=== PATIENT | female | born 1955 | race Caucasian/White ===

== ENCOUNTER 2018-01-21 16:32 | Emergency (ER) | payer BC ==
[~2018-01-21] VITALS: Ht 162.6 cm; Wt 79.6 kg
[2018-01-21] MEDS ORDERED: IV NORMAL SALINE 1,000ML 1,000 ML IV SCH (16:46)
--- NOTE | 2018-01-21 17:05 | PHYS DOC ---
Past History Past Medical History: Diabetes, High Cholesterol, Hypertension Additional Past Surgical Histo: knee replacement Smoking: Quit Greater Than 1 Year Adult General Chief Complaint Chief Complaint: FOOT INJURY PAIN HPI HPI Patient is a 62-year-old female who presents to the emergency department for evaluation. She states that she has had some redness on her left great toe for a while, but it became somewhat black over the past 2-3 days. She went to a exit booth agent today, for the first time, who sent her to the emergency department. The patient states the exit booth agent did an x-ray, which did show some gas in the soft tissues of her foot. The patient states that the exit booth agent told her that her foot was gangrenous P there is a malodorous discharge from her foot, especially in the interdigital regions. She states she is had some chills on and off for the past few weeks, but has not had any definite fevers. She does not have any significant pain in the area. There are no alleviating, or exacerbating factors to her symptoms. Review of Systems Review of Systems Constitutional: Denies fever. Reports occasional chills [] Eyes: Denies change in visual acuity, redness, or eye pain [] HENT: Denies nasal congestion or sore throat [] Respiratory: Denies cough or shortness of breath [] Cardiovascular: The patient denies any shortness of breath, chest pain, palpitations, or orthopnea [] GI: Denies abdominal pain, nausea, vomiting, bloody stools or diarrhea [] : Denies dysuria or hematuria [] Musculoskeletal: Denies back pain or joint pain [] Integument: Denies rash or skin lesions [] Neurologic: Denies headache, focal weakness or sensory changes. Does report chronic decreased sensation in her lower extremities bilaterally. [] Endocrine: Denies polyuria or polydipsia [] All other systems were reviewed and found to be within normal limits, except as documented in this note. Physical Exam Physical Exam PHYSICAL EXAM: CONSTITUTIONAL: Well developed, well nourished HEAD: normocephalic, atraumatic EENT: PERRL, EOMI. Conjunctivae normal color, sclerae non-icteric; moist mucous membranes. NECK: Supple, non-tender; no meningismus. LUNGS: Lungs CTA, breathing even and unlabored. Normal air movement. HEART: Regular rate and rhythm, no murmur CHEST: No deformity; non-tender ABDOMEN: The abdomen is soft, and non-tender, no masses or bruits. EXTREM: There are palpable popliteal pulses bilaterally. There are no definite dorsalis pedis or posterior tibial pulses palpable, but the feet bilaterally appear well perfused, and are warm to the touch. On the dorsal aspect of the left great toe, extending towards the distal foot, as well as the interdigital space, there is necrotic tissue, with malodorous discharge present. There is also some sloughing of the skin on the dorsal lateral aspect of the foot. All extremities exhibit Normal ROM; no deformity, no calf tenderness. There is no pedal edema. SKIN: No rash; no diaphoresis NEURO: Alert; normal speech and cognition; CN's grossly intact; strength grossly intact without focal deficit. BACK: No CVA TTP. EKG EKG [Normal sinus rhythm at a rate of 103 bpm, normal axis, normal intervals, there are no acute ischemic ST/T changes.] Radiology/Procedures Radiology/Procedures [ER physician preliminary for x-ray interpretation: Soft tissue gas is noted in the right toe. There is no definite bony erosion noted. There are postoperative changes in the screw at the distal first metatarsal. Official radiology report is currently pending.] Course & Med Decision Making Course & Med Decision Making Pertinent Labs and Imaging studies reviewed. (See chart for details) [6:00 PM: The patient does warrant transfer to a facility with surgery/podiatry , and possible vascular evaluation, although I am not highly suspicious this represents acute limits ischemia (there is no vascular Doppler to assess pulses , on clinical assessment foot does not appear acutely ischemic). I did speak with Dr. Wolfe, [facility], the patient's facility of choice, who accepted the patient. They will determine which facility is appropriate for the patient and give us a room assignment. The patient will be transferred via EMS.] Dragon Disclaimer Dragon Disclaimer This electronic medical record was generated, in whole or in part, using a voice recognition dictation system. Departure Departure: Impression: Primary Impression: Gangrene of toe of left foot Additional Impressions: Sepsis Diabetes Disposition: 02 XFER SHT-TRM HOSP ([facility]) Condition: STABLE Referrals: [facility] [place] (PCP) Problem Qualifiers SAMANTHA PARKER MD Jan 21, 2018 17:05
--- NOTE | 2018-01-21 17:08 | EKG ---
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
[2018-01-21] MEDS ORDERED: IV NORMAL SALINE 1,000ML 1,000 ML IV ONE (17:30)
[2018-01-21] MEDS ORDERED: PIPERACILLIN/TAZOBACTAM 3.375 GM VIAL IV ONE (17:41)
[2018-01-21] MEDS ORDERED: IV NORMAL SALINE 50ML 50 ML ONE (17:41)
[2018-01-21] MEDS ORDERED: VANCOMYCIN 1 GM VIAL. ONE (17:41)
[2018-01-21] MEDS ORDERED: IV NORMAL SALINE 250ML 250 ML ONE (17:41)
[2018-01-21 17:43] LABS: BASO # 0.1 x10^3/uL (0.0-0.2); BASO % 1 % (0-3); EOS # 0.2 x10^3/uL (0.0-0.7); EOS % 1 % (0-3); HEMATOCRIT 34.4 % (36.0-47.0); HEMOGLOBIN 11.6 g/dL (12.0-15.5); LYMPH # 2.9 x10^3/uL (1.0-4.8); LYMPH % 18 % (24-48); MEAN CORPUSCULAR HEMOGLOBIN 29 pg (25-35); MEAN CORPUSCULAR HGB CONC 34 g/dL (31-37); MEAN CORPUSCULAR VOLUME 85 fL (79-100); MONO # 1.1 x10^3/uL (0.0-1.1); MONO % 7 % (0-9); NEUT # 12.4 x10^3uL (1.8-7.7); NEUT % 74 % (31-73); PLATELET COUNT 372 x10^3/uL (140-400); RED BLOOD COUNT 4.05 x10^6/uL (3.50-5.40); RED CELL DISTRIBUTION WIDTH 13.5 % (11.5-14.5); WHITE BLOOD COUNT 16.7 x10^3/uL (4.0-11.0)
[2018-01-21 17:56] LABS: ALBUMIN/GLOBULIN RATIO 0.5 (1.0-1.7); CALCIUM 9.9 mg/dL (8.5-10.1); CREATININE 1.1 mg/dL (0.6-1.0); TOTAL BILIRUBIN 0.5 mg/dL (0.2-1.0); TOTAL PROTEIN 8.6 g/dL (6.4-8.2)
[2018-01-21 17:58] VITALS: BP 135/65
[2018-01-21] MEDS ORDERED: PIPERACILLIN/TAZOBACTAM 3.375 GM in IV NORMAL SALINE 50ML 50 ML IV ONE (18:00)
[2018-01-21] MEDS ORDERED: VANCOMYCIN 1 GM in IV NORMAL SALINE 250ML 250 ML IV ONE (18:00)
[2018-01-21 20:09] LABS: % BANDS 7 % (0-9); % LYMPHS 11 % (24-48); % MONOS 5 % (0-10); % SEGS 73 % (35-66)
[2018-01-21 20:20] LABS: PLT ESTIMATE ADEQUATE (ADEQUATE)
[2018-01-21 20:21] LABS: POLYCHROMASIA PRESENT
[2018-01-21 20:22] LABS: STOMATOCYTES FEW
[2018-01-21 20:39] LABS: % ATYL 4 % (0-0)
--- NOTE | 2018-01-21 22:06 | RAD ---
FOOT LEFT 3V History: Necrotic left great toe with redness, turned black a few days ago, diabetes, oozing Comparison: March 28, 2013. Findings: 3 views of the left foot are submitted. There is a single screw of the distal first metatarsal. There are some erosions are postsurgical change of the distal medial aspect of the left first metatarsal, similar in appearance compared the previous exam. No acute fracture is identified. There is some gas in the more medial plantar soft tissues at the level of the first interphalangeal joint without adjacent aggressive bone destruction. There is an associated small focus of radiopaque debris near the skin surface. There is some degenerative change most notable of the first metatarsal phalangeal joint. Impression: 1. There is some soft tissue gas at the medial plantar aspect of about the first interphalangeal joint and also a small focus of radiopaque debris closer to the skin surface. No aggressive bone destruction or acute fracture is identified. 2. There is again single screw of the distal first metatarsal. Electronically signed by: Crow Diego MD (01/21/2018 10:03 PM) [facility]
== END 2018-01-21 19:55 | disposition short-term general hospital (02) ==
LOC: ER 16:32
DX: E11.52 Type 2 diabetes mellitus with diabetic peripheral angiopathy with gangrene (principal); A48.0 Gas gangrene; A41.9 Sepsis, unspecified organism; E78.00 Pure hypercholesterolemia, unspecified; I10 Essential (primary) hypertension; Z87.891 Personal history of nicotine dependence
CPT/HCPCS: 36415; 73630; 80053; 82947; 83605; 85007; 85025; 87040; 87070; 93005; 96365; 96368; 99285; J2543; J3370; J7050; J7030

== ENCOUNTER 2020-04-10 13:44 | Emergency (ER) | payer BC, MEDICARE ==
[~2020-04-10] VITALS: Ht 167.6 cm; Wt 85.5 kg
[2020-04-10] MEDS ORDERED: ONDANSETRON PF 4 MG/2 ML VIAL. ONE (13:47)
[2020-04-10] MEDS ORDERED: IOHEXOL 350 MG/ML 100 ML VIAL. IV ONE (14:00)
--- NOTE | 2020-04-10 14:03 | RAD ---
EXAM: CT head without contrast INDICATION: Neuro deficits COMPARISON: None TECHNIQUE: Axial CT imaging through the head without intravenous contrast. One or more of the following individualized dose reduction techniques were utilized for this examination: 1. Automated exposure control 2. Adjustment of the mA and/or kV according to patient size 3. Use of iterative reconstruction technique. FINDINGS: The ventricles and sulci are moderately enlarged, reflecting age-related volume loss. There is a mild burden of periventricular and deep hypoattenuating white matter lesions, likely related to chronic microvascular ischemia. Calderón-white matter differentiation is maintained. There is no intracranial hemorrhage, acute infarct, or mass lesion. Basal cisterns are clear. The skull and scalp are intact. Paranasal sinuses and mastoid air cells are clear. Globes and orbits are intact.. IMPRESSION: 1. No acute intracranial abnormality. 2. Moderate volume loss and mild white matter disease. FOR INTERNAL CODING PURPOSES Critical result: Findings discussed with JACOBO JOHNSON at 04/10/2020 1:50 PM. RESULT CODE: (C) Electronically signed by: Alexa Archer MD (04/10/2020 2:00 PM) [id number]
[2020-04-10] MEDS ORDERED: LABETALOL 20 MG/4 ML DISP.SYRIN. IV PRN (14:30)
[2020-04-10] MEDS ORDERED: ALTEPLASE 0 MG IV ONE (14:30)
[2020-04-10] MEDS ORDERED: ALTEPLASE IV SCH (14:30)
[2020-04-10] MEDS ORDERED: ALTEPLASE 0 MG IV SCH (14:30)
[2020-04-10] MEDS ORDERED: ALTEPLASE 7.7 MG IV ONE (14:30)
[2020-04-10] MEDS ORDERED: IV NORMAL SALINE 50ML 50 ML IV ONE (14:30)
[2020-04-10] MEDS ORDERED: ALTEPLASE 100 MG IV ONE (14:33)
[2020-04-10 14:36] LABS: HEMATOCRIT 34.5 % (36.0-47.0); HEMOGLOBIN 11.2 g/dL (12.0-15.5); RED BLOOD COUNT 3.99 x10^6/uL (3.50-5.40); RED CELL DISTRIBUTION WIDTH 14.2 % (11.5-14.5); WHITE BLOOD COUNT 10.7 x10^3/uL (4.0-11.0)
--- NOTE | 2020-04-10 14:37 | PHYS DOC ---
Past History Past Medical History: Diabetes, High Cholesterol, Hypertension Past Surgical History: Cholecystectomy, , Hysterectomy, Oophorectomy, Other Additional Past Surgical Histo: knee replacement Smoking: Quit Greater Than 1 Year Alcohol Use: None Drug Use: None General Adult EDM: Chief Complaint: NEURO SYMPTOMS/DEFICITS HPI: HPI: 64-year-old female presents via EMS as a code stroke. She was last known well at 1245. She was directly observed by her to have a sudden onset of slurred speech and inability to stand. The patient did not notice the weakness until she tried to stand up. When she tried to talk she does notice that she has slurred speech. She also has a left facial droop. Patient was feeling well prior to this. She denies fever or chills. Review of Systems: Review of Systems: Constitutional: Denies fever or chills Eyes: Denies change in visual acuity HENT: Denies nasal congestion or sore throat Respiratory: Denies cough or shortness of breath Cardiovascular: Denies chest pain or edema GI: Denies abdominal pain, nausea, vomiting, bloody stools or diarrhea : Denies dysuria Musculoskeletal: Denies back pain or joint pain Integument: Denies rash Neurologic: Left-sided facial droop, slurred speech, lower extremity weakness bilaterally Endocrine: Denies polyuria or polydipsia Lymphatic: Denies swollen glands Psychiatric: Denies depression or anxiety Current Medications: Current Meds: Current Medications Medications (Trade) Dose Ordered Sig/Reva Start Time Stop Time Status Last Admin Dose Admin Alteplase, Recombinant 0 ml @ 0 mls/hr Q1H 04/10/20 14:30 04/10/20 14:31 UNV Iohexol (Omnipaque 350 Mg/ml) 100 ml 1X ONCE 04/10/20 14:00 04/10/20 14:01 DC 04/10/20 14:10 100 ML Labetalol HCl (Normodyne) 10 mg PRN Q10MIN PRN 04/10/20 14:30 UNV Nicardipine HCl 50 mg/Sodium Chloride 250 ml @ 25 mls/hr CONT PRN PRN 04/10/20 14:30 UNV Ondansetron HCl (Zofran) 4 mg STK-MED ONCE 04/10/20 13:47 04/10/20 13:48 DC Sodium Chloride 50 ml @ 0 mls/hr 1X ONCE 04/10/20 14:30 04/10/20 14:31 UNV Allergies: Allergies: Allergies Coded Allergies Type Severity Reaction Last Updated Verified No Known Drug Allergies 01/21/18 No Physical Exam: PE: Constitutional: Well developed, well nourished, no acute distress, non-toxic appearance. [] HENT: Normocephalic, atraumatic, bilateral external ears normal, oropharynx moist, no oral exudates, nose normal. [] Eyes: PERRLA, EOMI, conjunctiva normal, no discharge. [] Neck: Normal range of motion, no tenderness, supple, no stridor. [] Cardiovascular: Heart rate regular rhythm, no murmur [] Lungs & Thorax: Bilateral breath sounds clear to auscultation [] Abdomen: Bowel sounds normal, soft, no tenderness, no masses, no pulsatile masses. [] Skin: Warm, dry, no erythema, no rash. [] Back: No tenderness, no CVA tenderness. [] Extremities: No tenderness, no cyanosis, no clubbing, ROM intact, no edema. [] Neurologic: See NIHSS [] Psychologic: Affect normal, judgement normal, mood normal. [] Current Patient Data: Labs: Laboratory Tests Test 04/10/20 14:06 Glucose (Fingerstick) 185 mg/dL (70-99) H EKG: EKG: [] Radiology/Procedures: Radiology/Procedures: [] Impressions: EXAM: CT head without contrast INDICATION: Neuro deficits COMPARISON: None TECHNIQUE: Axial CT imaging through the head without intravenous contrast. One or more of the following individualized dose reduction techniques were utilized for this examination: 1. Automated exposure control 2. Adjustment of the mA and/or kV according to patient size 3. Use of iterative reconstruction technique. FINDINGS: The ventricles and sulci are moderately enlarged, reflecting age-related volume loss. There is a mild burden of periventricular and deep hypoattenuating white matter lesions, likely related to chronic microvascular ischemia. Calderón-white matter differentiation is maintained. There is no intracranial hemorrhage, acute infarct, or mass lesion. Basal cisterns are clear. The skull and scalp are intact. Paranasal sinuses and mastoid air cells are clear. Globes and orbits are intact.. IMPRESSION: 1. No acute intracranial abnormality. 2. Moderate volume loss and mild white matter disease. FOR INTERNAL CODING PURPOSES Critical result: Findings discussed with JACOBO JOHNSON at 04/10/2020 1:50 PM. RESULT CODE: (C) Electronically signed by: Alexa Archer MD (04/10/2020 2:00 PM) [id number] DICTATED AND SIGNED BY: ALEXA ARCHER MD DATE: 04/10/20 1400 CC: JACOBO JOHNSON DO; [facility] [place] ~ STUDY: CT angiography of the head and neck INDICATION: Slurred study COMPARISON: CT head same day TECHNIQUE: Axial CT imaging of the head and neck utilizing angiography protocol and performed after the intravenous administration of intravenous contrast. Multiplanar reformats and 3D MIP acquisitions were obtained. Encountered areas of stenosis are measured per NASCET criteria. One or more of the following individualized dose reduction techniques were utilized for this examination: 1. Automated exposure control 2. Adjustment of the mA and/or kV according to patient size 3. Use of iterative reconstruction technique. FINDINGS: CTA NECK: Arch/Proximal Great Vessels: Normal configuration. Mild calcified atherosclerosis at great vessel origins without narrowing. Carotid Bifurcation/Cervical ICA: Common carotid arteries are patent. There is mild atheromatous plaque and calcifications at the right carotid bifurcation and minimal calcifications of the left carotid bifurcation. Approximately 15 percent narrowing of the right internal carotid artery origin. No narrowing of the left internal carotid artery origin. Vertebral Arteries: There are calcifications at the right vertebral artery origin, however the vertebral artery is patent. The left vertebral artery is normal. CTA HEAD: Posterior Circulation: There are calcifications in the intradural left vertebral artery with mild to moderate narrowing. The right intradural vertebral artery is patent. Basilar artery, superior cerebellar arteries, and posterior cerebral arteries are normal. Anterior Circulation: Mild calcifications in the intracranial internal carotid arteries with mild narrowing, greater on the right. The middle cerebral, anterior cerebral, and anterior communicating arteries are normal. Veins: Dural venous sinuses and jugular veins are patent. MISCELLANEOUS: Mildly enlarged, multinodular thyroid gland. Lung apices are clear. IMPRESSION: No large vessel occlusion in the head or neck. Critical results discussed by Dr. Archer with Dr. Johnson at 2:30 PM on 04/10/2020 FOR INTERNAL CODING PURPOSES Critical result: Findings discussed with JACOBO JOHNSON at 04/10/2020 2:38 PM. RESULT CODE: (C) Electronically signed by: Alexa Archer MD (04/10/2020 2:39 PM) [id number] DICTATED AND SIGNED BY: ALEXA ARCHER MD DATE: 04/10/20 1439 CC: JACOBO JOHNSON DO; [facility] [place] ~ Heart Score: Risk Factors: Risk Factors: DM, Current or recent (<one month) smoker, HTN, HLP, family history of CAD, obesity. Risk Scores: Score 0 - 3: 2.5% MACE over next 6 weeks - Discharge Home Score 4 - 6: 20.3% MACE over next 6 weeks - Admit for Clinical Observation Score 7 - 10: 72.7% MACE over next 6 weeks - Early Invasive Strategies Course & Med Decision Making: Course & Med Decision Making Pertinent Labs and Imaging studies reviewed. (See chart for details) The patient's head CT is negative for hemorrhagic stroke. Her CTA is reported to be negative. I spoke with the patient about TPA. She has slurred speech and this is an optional indication for TPA. The patient denies recent surgery. She denies history of hemorrhagic stroke or aneurysms. She understands that TPA may help her symptoms, and may not change her symptoms at all, where she could have worsening of symptoms. She would like to proceed. The patient would like to be transferred to the [facility] system. We will attempt to do this. Her labs are unremarkable. [facility] was unable to accept the transfer due to a long wait to go to the correct facility. The patient has agreed to transfer to [facility]. The patient seems to worsen the bed as she now has noticeable weakness in her right arm and right leg. Her NIH stroke scale score is now 5. I repeated her head CT without contrast and it was still negative. I spoke with Dr. Anton at [facility] and he has accepted the patient for transfer and admission. She will go by ambulance. 52 minutes of critical care time was spent on this patient exclusive of other billable procedures. [] Dragon Disclaimer: Dragon Disclaimer: This electronic medical record was generated, in whole or in part, using a voice recognition dictation system. NIH Stroke Scale: NIH Stroke Scale Response (Comments) Value Level of Consciousness: 0 Alert/Responsive 0 LOC Questions: 0 Answers both correctly 0 LOC Commands: 0 Performs both tasks 0 Best Gaze: 0 Normal 0 Visual: 0 No visual loss 0 Facial Palsy: 1 Minor paralysis 1 Motor - Left Arm 0 No drift 0 Motor - Right Arm 0 No drift 0 Motor - Left Leg 0 No drift 0 Motor: Right Leg 0 No drift 0 Limb Ataxia: 0 Absent 0 Sensory: 0 No loss 0 Best Language: 0 Normal 0 Dysathria: 1 Mild to moderate 1 Extinction and Inattention: 0 Normal 0 Total 2 Departure Departure: Impression: Primary Impression: Stroke Qualified Codes: I63.50 - Cerebral infarction due to unspecified occlusion or stenosis of unspecified cerebral artery Disposition: 02 DC/TRF OTHER SHORT TERM HOS Condition: STABLE Referrals: [facility] [place] (PCP) JACOBO JOHNSON DO Apr 10, 2020 14:37
[2020-04-10 14:41] LABS: CALCIUM 9.6 mg/dL (8.5-10.1); CREATININE 1.2 mg/dL (0.6-1.0); GFR 44.9; POTASSIUM 4.2 mmol/L (3.5-5.1)
--- NOTE | 2020-04-10 14:42 | RAD ---
STUDY: CT angiography of the head and neck INDICATION: Slurred study COMPARISON: CT head same day TECHNIQUE: Axial CT imaging of the head and neck utilizing angiography protocol and performed after the intravenous administration of intravenous contrast. Multiplanar reformats and 3D MIP acquisitions were obtained. Encountered areas of stenosis are measured per NASCET criteria. One or more of the following individualized dose reduction techniques were utilized for this examination: 1. Automated exposure control 2. Adjustment of the mA and/or kV according to patient size 3. Use of iterative reconstruction technique. FINDINGS: CTA NECK: Arch/Proximal Great Vessels: Normal configuration. Mild calcified atherosclerosis at great vessel origins without narrowing. Carotid Bifurcation/Cervical ICA: Common carotid arteries are patent. There is mild atheromatous plaque and calcifications at the right carotid bifurcation and minimal calcifications of the left carotid bifurcation. Approximately 15 percent narrowing of the right internal carotid artery origin. No narrowing of the left internal carotid artery origin. Vertebral Arteries: There are calcifications at the right vertebral artery origin, however the vertebral artery is patent. The left vertebral artery is normal. CTA HEAD: Posterior Circulation: There are calcifications in the intradural left vertebral artery with mild to moderate narrowing. The right intradural vertebral artery is patent. Basilar artery, superior cerebellar arteries, and posterior cerebral arteries are normal. Anterior Circulation: Mild calcifications in the intracranial internal carotid arteries with mild narrowing, greater on the right. The middle cerebral, anterior cerebral, and anterior communicating arteries are normal. Veins: Dural venous sinuses and jugular veins are patent. MISCELLANEOUS: Mildly enlarged, multinodular thyroid gland. Lung apices are clear. IMPRESSION: No large vessel occlusion in the head or neck. Critical results discussed by Dr. Archer with Dr. Johnson at 2:30 PM on 04/10/2020 FOR INTERNAL CODING PURPOSES Critical result: Findings discussed with JACOBO JOHNSON at 04/10/2020 2:38 PM. RESULT CODE: (C) Electronically signed by: Alexa Archer MD (04/10/2020 2:39 PM) [id number]
[2020-04-10 14:47] LABS: ALBUMIN/GLOBULIN RATIO 0.8 (1.0-1.7); TOTAL BILIRUBIN 0.1 mg/dL (0.2-1.0); TOTAL PROTEIN 6.8 g/dL (6.4-8.2)
--- NOTE | 2020-04-10 14:59 | EKG ---
[address] [address] Test Date: 2020-04-10 Test Time: 14:00:28 Pat Name: JUSTIN GONZALEZ Department: Room: Gender: F Entry Level: DOLLY : 1955 Requested By: JACOBO JOHNSON Order Number: [id number] Reading MD: Measurements Intervals [place] Rate: 90 P: 56 PA: 162 QRS: 53 QRSD: 82 T: 71 QT: 350 QTc: 432 Interpretive Statements SINUS RHYTHM NORMAL ECG RI6.02 No previous ECG available for comparison
--- NOTE | 2020-04-10 17:19 | RAD ---
EXAM: CT head without contrast INDICATION: Stroke, acute change COMPARISON: CT head 04/10/2020 at 1:36 PM TECHNIQUE: Axial CT imaging through the head without intravenous contrast. One or more of the following individualized dose reduction techniques were utilized for this examination: 1. Automated exposure control 2. Adjustment of the mA and/or kV according to patient size 3. Use of iterative reconstruction technique. FINDINGS: The ventricles and sulci are moderately enlarged, reflecting age-related volume loss. There is a mild burden of periventricular and deep hypoattenuating white matter lesions. Calderón-white matter differentiation is maintained. There is no intracranial hemorrhage, acute infarct, or mass lesion. Basal cisterns are clear. The skull and scalp are intact. Paranasal sinuses and mastoid air cells are clear. Globes and orbits are intact.. IMPRESSION: No acute intracranial abnormality. FOR INTERNAL CODING PURPOSES Critical result: Findings discussed with JACOBO JOHNSON at 04/10/2020 5:16 PM. RESULT CODE: (C) Electronically signed by: Alexa Archer MD (04/10/2020 5:16 PM) [id number]
[2020-04-10 17:21] VITALS: BP 142/60
[2020-04-10 18:29] LABS: BILIRUBIN,URINE NEG (NEG); CLARITY,URINE CLOUDY; COLOR,URINE YELLOW; GLUCOSE,URINE 100 mg/dL (NEG)
[2020-04-10 18:30] LABS: BACTERIA,URINE MOD /HPF (0-FEW); NITRITE,URINE NEG (NEG); RBC,URINE >40 /HPF (0-2); UROBILINOGEN,URINE 0.2 mg/dL (0.2 mg/dL)
== END 2020-04-10 18:30 | disposition short-term general hospital (02) ==
LOC: ER 13:44
DX: I63.50 Cerebral infarction due to unspecified occlusion or stenosis of unspecified cerebral artery (principal); R47.81 Slurred speech; R53.1 Weakness; R29.810 Facial weakness; E11.9 Type 2 diabetes mellitus without complications; E78.00 Pure hypercholesterolemia, unspecified; I10 Essential (primary) hypertension; Z87.891 Personal history of nicotine dependence
CPT/HCPCS: 36415; 37195; 51702; 70450; 70496; 70498; 80053; 81001; 82947; 84484; 85027; 85610; 85730; 87086; 93005; 99291; J2997; Q9967